=== PATIENT | female | born 1940 | race Caucasian/White ===

== ENCOUNTER → 2016-10-19 | Outpatient (CLI) | payer MEDICARE, BC ==
[2016-10-19 11:13] LABS: Basophils % (A) 1 %; CH 29.6; CHCM 32.4; Eosinophils # (A) 0.2 k/uL (0-0.7); Eosinophils % (A) 4 %; HDW 2.42; HGB 11.7 gm/dL (11.4-16.0); Luc # (Auto) 0.22; Luc % (Auto) 4; Lymphocytes # (A) 0.9 k/uL (1.0-4.8); Lymphocytes % (A) 15 %; MCH 28.9 pg (25.0-35.0); MCHC 31.6 g/dL (31.0-37.0); MCV 91.7 fL (80.0-100.0); Monocytes # (A) 0.4 k/uL (0-1.0); Monocytes % (A) 7 %; Neutrophils # (A) 4.1 k/uL (1.3-7.7); Neutrophils % (A) 70 %; RBC 4.03 m/uL (3.80-5.40); RDW 13.7 % (11.5-15.5); WBC 5.9 k/uL (3.8-10.6); WBC (Perox) 5.91
[2016-10-19 11:18] LABS: Calcium 9.8 mg/dL (8.4-10.2); Potassium 4.9 mmol/L (3.5-5.1); Total Bilirubin 0.3 mg/dL (0.2-1.3)
== END | disposition home or self-care (01) ==
LOC: LABWHC1 10:25
PROVIDERS: ATTEND Internal Medicine Gastroenterology
DX: K51.90 Ulcerative colitis, unspecified, without complications (principal)
CPT/HCPCS: 36415; 80053; 85025

== ENCOUNTER → 2016-10-31 | Outpatient (CLI) | payer MEDICARE, BC ==
--- NOTE | 2016-10-31 14:28 | MM ---
Reason for exam: history of breast cancer, mastectomy. Last mammogram was performed 1 year ago. History: Patient is postmenopausal, has history of breast cancer at age 65, and had previous chest radiation therapy at age 64. Family history of breast cancer in sister at age 60. Malignant MG stereo VAD BX addl LT of the left breast, November 06, 2014. Malignant MG stereo VAD BX LT of the left breast, November 06, 2014. Malignant left mammotome panel of the left breast, December 23, 2005. Radiation therapy of the left breast, 2005. Lumpectomy of the left breast, 2004. Cyst aspiration of the right breast. Excisional biopsy of the left breast. Physical Findings: Nurse did not find any significant physical abnormalities on exam. MG 3D Diag Mammo W/Cad RT CC and MLO view(s) were taken of the right breast. Prior study comparison: November 02, 2015, right breast MG 3d diag mammo w/cad RT. October 29, 2014, bilateral MG diagnostic mammo w CAD ANAND. The breast tissue is almost entirely fat. There is no discrete abnormality. No significant new findings when compared with previous films. These results were verbally communicated with the patient and result sheet given to the patient on 10/31/16. ASSESSMENT: Benign, BI-RAD 2 RECOMMENDATION: Follow-up diagnostic mammogram of the right breast in 1 year.
== END | disposition home or self-care (01) ==
LOC: RADMAMWWP 12:41
PROVIDERS: ATTEND Internal Medicine Hematology & Oncology
DX: Z85.3 Personal history of malignant neoplasm of breast (principal)
CPT/HCPCS: G0206; G0279

== ENCOUNTER → 2017-01-13 | Outpatient (CLI) | payer MEDICARE, BC ==
--- NOTE | 2017-01-13 15:22 | XR ---
Left foot HISTORY: Neuropathy, second toe numbness 3 views of the left foot No comparisons There is hallux valgus deformity with degenerative change at the first metatarsophalangeal joint. Bon e mineralization is reduced. Alignment otherwise near anatomic. Joint spaces are mildly reduced at th e interphalangeal joints. Enthesophyte present at the insertion of the Achilles tendon. IMPRESSION: Osteopenia, osteoarthritis and additional findings above.
== END | disposition home or self-care (01) ==
LOC: RADXRMAIN 11:20
PROVIDERS: ATTEND Internal Medicine
DX: S99.922A Unspecified injury of left foot, initial encounter (principal); M19.072 Primary osteoarthritis, left ankle and foot; M85.872 Other specified disorders of bone density and structure, left ankle and foot

== ENCOUNTER → 2017-05-02 | Outpatient (CLI) | payer MEDICARE, BC ==
--- NOTE | 2017-05-02 10:55 | BD ---
EXAMINATION TYPE: MG DEXA axial skeleton. DATE OF EXAM: 05/02/2017 CLINICAL HISTORY: Height: 62 inches Weight: 148 pounds FRAX RISK QUESTIONS: Alcohol (3 or more units per day): no Family History (Parent hip fracture): no Glucocorticoids (More than 3mos): no (Ex: prednisone, prednisolone, methylprednisolone, dexamethasone, and hydrocortisone). History of Fracture in Adulthood: wrist & ankle Secondary Osteoporosis: 1. Type 1 Diabetes: no, type II 2. Hyperthyroidism: no 3. Menopause before 45: hysterectomy age 40 4. Malnutrition: no 5. Chronic liver disease: no Rheumatoid Arthritis: yes Current Tobacco Use: no RISK FACTORS HISTORY OF: History of Wrist Fracture: yes When: about 20 years ago in [place] Family History of Osteoporosis: yes Active: yes Diet low in dairy products/other sources of calcium: a serving about every other day Postmenopausal woman: yes Take estrogen and/or progesterone medications: no Lost more than 2 inches in height since high school: unsure if height was at one time 64 or 63 inches Frequent falls: no Poor Health: no Hyperparathyroidism: no Adrenal Insufficiency: no MEDICATIONS: Prednisone or other steroids: no Thyroid Medications: no Osteoporosis Medications: not now Which medication: Fosamax How Long: a couple years Additional Medications: calcium& Vitamin D , blood pressure meds, Letrozole(Femara), cholesterol meds , Imuran Additional History: breast CA/radiation, diabetic-not insulin dependant; inactive cholitis EXAM MEASUREMENTS: Bone mineral densitometry was performed using the Individual Digital System. Bone mineral density as measured about the Lumbar spine is: ----- L1-L4(G/cm2): 1.046 T Score Values are as follows: ----- L2: -2.0 ----- L3: -0.7 ----- L4: -0.9 ----- L1-L4: -1.1 Bone mineral density has: Decreased -3.4% since study of: 09/22/2014 Bone mineral density about the R hip (g/cm2): 0.793 Bone mineral density about the L hip (g/cm2): 0.971 T Score values are as follows: -----R Neck: -1.8 -----L Neck: -0.5 -----R Total: -1.8 -----L Total: -1.1 Bone mineral density has: Decreased -2.7% since study of: 09/22/2014 IMPRESSION: Osteopenia (T Score between -2.5 and -1 as noted by T score values There is slightly increased risk of fracture and the patient may be considered for treatment. Re-Screen 2-5 years. NOTE: T-SCORE=SD OF THE YOUNG ADULT MEAN.
== END | disposition home or self-care (01) ==
LOC: RADBDWWP 09:58
PROVIDERS: ATTEND Internal Medicine Hematology & Oncology
DX: M85.80 Other specified disorders of bone density and structure, unspecified site (principal); C50.919 Malignant neoplasm of unspecified site of unspecified female breast
CPT/HCPCS: 77080

== ENCOUNTER → 2017-05-12 | Outpatient (CLI) | payer MEDICARE, BC ==
[2017-05-12 10:26] LABS: Basophils % (A) 1 %; CH 28.9; CHCM 31.7; Eosinophils # (A) 0.2 k/uL (0-0.7); Eosinophils % (A) 3 %; HCT 35.3 % (34.0-46.0); HDW 2.42; HGB 11.7 gm/dL (11.4-16.0); Luc # (Auto) 0.19; Luc % (Auto) 3; Lymphocytes # (A) 1.1 k/uL (1.0-4.8); Lymphocytes % (A) 18 %; MCH 30.3 pg (25.0-35.0); MCHC 33.1 g/dL (31.0-37.0); MCV 91.6 fL (80.0-100.0); Mean Platelet Volume 7.4; Monocytes # (A) 0.3 k/uL (0-1.0); Monocytes % (A) 5 %; Neutrophils # (A) 4.2 k/uL (1.3-7.7); Neutrophils % (A) 70 %; RBC 3.86 m/uL (3.80-5.40); RDW 12.8 % (11.5-15.5); WBC (Perox) 6.69
[2017-05-12 10:44] LABS: Calcium 9.7 mg/dL (8.4-10.2); Total Bilirubin 0.2 mg/dL (0.2-1.3); Total Protein 6.8 g/dL (6.3-8.2)
== END | disposition home or self-care (01) ==
LOC: LABWHC1 09:36
PROVIDERS: ATTEND Internal Medicine Gastroenterology
DX: K51.90 Ulcerative colitis, unspecified, without complications (principal)
CPT/HCPCS: 36415; 80053; 85025

== ENCOUNTER → 2017-10-27 | Outpatient (CLI) | payer MEDICARE, BC ==
[2017-10-27 10:01] LABS: Basophils % (A) 1 %; Eosinophils # (A) 0.2 k/uL (0-0.7); Eosinophils % (A) 4 %; HCT 36.9 % (34.0-46.0); HGB 12.3 gm/dL (11.4-16.0); Lymphocytes # (A) 0.9 k/uL (1.0-4.8); Lymphocytes % (A) 18 %; MCH 29.6 pg (25.0-35.0); MCHC 33.4 g/dL (31.0-37.0); MCV 88.7 fL (80.0-100.0); Mean Platelet Volume 7.7; Monocytes # (A) 0.2 k/uL (0-1.0); Monocytes % (A) 5 %; Neutrophils # (A) 3.5 k/uL (1.3-7.7); Neutrophils % (A) 69 %; Platelet Count 189 k/uL (150-450); RBC 4.16 m/uL (3.80-5.40); RDW 13.3 % (11.5-15.5); WBC 5.1 k/uL (3.8-10.6)
== END | disposition home or self-care (01) ==
LOC: LABWHC1 09:13
PROVIDERS: ATTEND Internal Medicine Gastroenterology
DX: K51.90 Ulcerative colitis, unspecified, without complications (principal)
CPT/HCPCS: 36415; 85025

== ENCOUNTER → 2017-11-01 | Outpatient (CLI) | payer MEDICARE, BC ==
--- NOTE | 2017-11-01 10:56 | MM ---
Reason for exam: additional evaluation requested from prior study. Last mammogram was performed 1 year ago. History: Patient is postmenopausal, has history of breast cancer at age 65, and had previous chest radiation therapy at age 64. Family history of breast cancer in sister at age 60. Malignant MG stereo VAD BX addl LT of the left breast, November 06, 2014. Malignant MG stereo VAD BX LT of the left breast, November 06, 2014. Mastectomy of the left breast, 2014. Malignant left mammotome panel of the left breast, December 23, 2005. Radiation therapy of the left breast, 2005. Lumpectomy of the left breast, 2004. Cyst aspiration of the right breast. Excisional biopsy of the left breast. Physical Findings: Nurse did not find any significant physical abnormalities on exam. MG 3D Diag Mammo W/Cad RT CC and MLO view(s) were taken of the right breast. Prior study comparison: October 31, 2016, right breast MG 3d diag mammo w/cad RT. November 02, 2015, right breast MG 3d diag mammo w/cad RT. There are scattered fibroglandular densities. No significant new findings when compared with previous films. These results were verbally communicated with the patient and result sheet given to the patient on 11/01/17. ASSESSMENT: Benign, BI-RAD 2 RECOMMENDATION: Routine screening mammogram of the right breast in 1 year.
== END | disposition home or self-care (01) ==
LOC: RADMAMWWP 10:02
PROVIDERS: ATTEND Internal Medicine Hematology & Oncology
DX: Z08 Encounter for follow-up examination after completed treatment for malignant neoplasm (principal); Z85.3 Personal history of malignant neoplasm of breast
CPT/HCPCS: 77065; G0279

== ENCOUNTER → 2018-04-30 | Outpatient (CLI) | payer MEDICARE, BC ==
[2018-04-30 10:15] LABS: Albumin 3.6 g/dL (3.5-5.0); Calcium 9.6 mg/dL (8.4-10.2); Total Bilirubin 0.3 mg/dL (0.2-1.3); Total Protein 6.1 g/dL (6.3-8.2)
[2018-04-30 10:18] LABS: Basophils % (A) 1 %; Eosinophils # (A) 0.3 k/uL (0-0.7); Eosinophils % (A) 7 %; HGB 10.4 gm/dL (11.4-16.0); Lymphocytes # (A) 0.9 k/uL (1.0-4.8); Lymphocytes % (A) 20 %; MCH 28.8 pg (25.0-35.0); MCHC 31.4 g/dL (31.0-37.0); MCV 91.8 fL (80.0-100.0); Mean Platelet Volume 7.8; Monocytes # (A) 0.3 k/uL (0-1.0); Monocytes % (A) 6 %; Neutrophils # (A) 2.9 k/uL (1.3-7.7); Neutrophils % (A) 64 %; Platelet Count 138 k/uL (150-450); RDW 14.1 % (11.5-15.5); WBC 4.6 k/uL (3.8-10.6)
== END | disposition home or self-care (01) ==
LOC: LABWHC1 08:22
PROVIDERS: ATTEND Internal Medicine Gastroenterology
DX: K51.90 Ulcerative colitis, unspecified, without complications (principal)
CPT/HCPCS: 36415; 80053; 85025

== ENCOUNTER → 2018-05-07 | Outpatient (CLI) | payer MEDICARE, BC ==
--- NOTE | 2018-05-08 06:45 | BD ---
EXAMINATION TYPE: Axial Bone Density DATE OF EXAM: 05/07/2018 COMPARISON: DEXA bone scan May 02, 2017. CLINICAL HISTORY: Breast cancer and osteopenia. Height: 5'2 Weight: 136 FRAX RISK QUESTIONS: History of Fracture in Adulthood: y Secondary Osteoporosis: 3. Menopause before 45: y RISK FACTORS HISTORY OF: History of Wrist Fracture: y When: 20 years ago MEDICATIONS: Osteoporosis Medications: Which medication: Other Prolia How Lon x Additional Medications: calcium, Vitamin D, cholesterol, Letrozole Additional History: breast cancer , radiation, type 2 diabetes EXAM MEASUREMENTS: Bone mineral densitometry was performed using the [employer]ainment System. Bone mineral density as measured about the Lumbar spine is: ----- L1-L4(G/cm2): 1.086 T Score Values are as follows: ----- L2: -1.6 ----- L3: -0.6 ----- L4: -0.2 ----- L1-L4: -0.8 Bone mineral density has: Increased 4.9% since study of: 05/02/2017 Bone mineral density about the R hip (g/cm2): 0.779 Bone mineral density about the L hip (g/cm2): 0.934 T Score values are as follows: -----R Neck: p-1.9 -----L Neck: -0.7 -----R Total: -1.9 -----L Total: -1.2 Bone mineral density has: Decreased -2.1% since study of: 05/02/2017 IMPRESSION: Osteopenia (T Score between -2.5 and -1) persists at 2 consecutive levels in the low back and overall in both hips. There remains slightly increased risk of fracture and the patient may be considered for treatment. Re-Screen 2-5 years. NOTE: T-SCORE=SD OF THE YOUNG ADULT MEAN.
== END ==
LOC: RADBDWWP 07:23
PROVIDERS: ATTEND Internal Medicine Hematology & Oncology
DX: M85.88 Other specified disorders of bone density and structure, other site (principal); M85.851 Other specified disorders of bone density and structure, right thigh; M85.852 Other specified disorders of bone density and structure, left thigh
CPT/HCPCS: 77080

== ENCOUNTER 2018-08-29 06:56 | Day surgery (SDC) | payer MEDICARE, BC ==
[2018-08-28 09:05] VITALS: BMI 23.1
[~2018-08-29 06:56] MED LIST: LACTATED RINGERS 1,000 ML IV SCH
[2018-08-29 07:32] VITALS: RESP 16; TEMP 97.8
[2018-08-29] MEDS ORDERED: LIDOCAINE 1% 20 ML VIAL (10MG/ML) FOR IV START INTRADERMA ONE (07:34)
[2018-08-29 07:37] LABS: Glucose,Whole Blood 86 mg/dL (75-99)
[2018-08-29] MEDS: hydrALAZINE HCL 20 MG/ML 1 ML VIAL IV ONE ×2 (07:55→08:20)
[2018-08-29] MEDS ORDERED: LABETALOL SYRINGE 5 MG/ML IV ONE (09:05)
[2018-08-29 09:38] VITALS: BP 175/79; PULSE 65
[2018-08-29 09:43] LABS: Glucose,Whole Blood 130 mg/dL (75-99)
== END 2018-08-29 10:03 | disposition home or self-care (01) ==
LOC: ORWHC2ENDO 06:56
PROVIDERS: ATTEND Internal Medicine Gastroenterology
DX: K51.90 Ulcerative colitis, unspecified, without complications (principal); Z53.09 Procedure and treatment not carried out because of other contraindication; I10 Essential (primary) hypertension

== ENCOUNTER 2018-08-30 09:12 | Day surgery (SDC) | payer MEDICARE, BC ==
[2018-08-30] MEDS ORDERED: LACTATED RINGERS 1,000 ML IV ONE ×2 (09:26)
[2018-08-30 09:27] VITALS: TEMP 97.8
[2018-08-30] MEDS ORDERED: LIDOCAINE 1% 20 ML VIAL (10MG/ML) FOR IV START INTRADERMA PRN (09:34)
[2018-08-30] MEDS ORDERED: LACTATED RINGERS 1,000 ML IV SCH (09:34)
[2018-08-30 09:42] LABS: Glucose,Whole Blood 140 mg/dL (75-99)
[2018-08-30] MEDS ORDERED: PROPOFOL 10 MG/ML 20 ML VIAL IV ONE (10:34)
--- NOTE | 2018-08-30 10:54 | P.PCN ---
Date of Procedure: 08/30/18 Procedure(s) Performed: BRIEF HISTORY: Patient is a 77-year-old pleasant white female, scheduled for an elective colonoscopy as a part of surveillance of long-standing history of ulcerative colitis diagnosed 15 years ago. She has been maintained on Imuran 100 mg daily since 1999 and remains in clinical remission. Imuran was decreased to 50 mg daily 2 years ago and still continues to do well. PROCEDURE PERFORMED: Colonoscopy with random biopsy. PREOPERATIVE DIAGNOSIS: Long-standing history of ulcerative colitis. IV sedation per Anesthesia. PROCEDURE: After informed consent was obtained, the patient, was brought into the endoscopy unit. IV sedation was administered by Anesthesia under continuous monitoring. Digital rectal examination was normal. Initially the Olympus CF- 160 flexible video colonoscope was then inserted in the rectum, gradually advanced into the cecum without any difficulty. Careful examination was performed as the scope was gradually being withdrawn. Ileocecal valve and the appendiceal orifice were visualized and appeared normal. Prep was excellent. Mucosa of the cecum, ascending colon, transverse colon, descending colon, sigmoid colon, and rectum appeared normal. Random biopsies were done at every 10 cm intervals from rectum to cecum to rule out dysplasia. Retroflexion was performed in the rectum and no lesions were seen. The patient tolerated the procedure well. IMPRESSION: Normal-appearing colon from rectum to cecum with no evidence of colitis or colorectal neoplasia.. RECOMMENDATIONS: Findings of this examination were discussed with the patient as well as a family. She was advised to follow with the biopsy results and if the biopsy does not show any evidence of dysplasia she can have a repeat colonoscopy in 2 years.
[2018-08-30 11:12] VITALS: BP 149/72; PULSE 60
[2018-08-30 11:20] VITALS: RESP 18
== END 2018-08-30 11:36 | disposition home or self-care (01) ==
LOC: ORWHC2ENDO 09:12
PROVIDERS: ATTEND Internal Medicine Gastroenterology
DX: K52.9 Noninfective gastroenteritis and colitis, unspecified (principal); K21.9 Gastro-esophageal reflux disease without esophagitis; I10 Essential (primary) hypertension; E78.5 Hyperlipidemia, unspecified; E11.9 Type 2 diabetes mellitus without complications; F41.9 Anxiety disorder, unspecified; Z79.84 Long term (current) use of oral hypoglycemic drugs; Z79.811 Long term (current) use of aromatase inhibitors; Z79.899 Other long term (current) drug therapy; Z88.6 Allergy status to analgesic agent; Z88.3 Allergy status to other anti-infective agents; Z88.8 Allergy status to other drugs, medicaments and biological substances
CPT/HCPCS: 88305; 45380; J2704

== ENCOUNTER → 2018-10-29 | Outpatient (CLI) | payer MEDICARE, BC ==
[2018-10-29 16:09] LABS: Albumin 4.2 g/dL (3.80-4.90); Albumin/Globulin Ratio 2.33 (1.60-3.17); Anion Gap 6.1 mmol/L (4.00-12.00); Calcium 9.8 mg/dL (8.7-10.3); Carbon Dioxide 26.9 mmol/L (21.6-31.8); Globulin 1.8 g/dL (1.6-3.3); Potassium 4.8 mmol/L (3.5-5.5); Total Bilirubin 0.5 mg/dL (0.2-1.2)
== END ==
LOC: LABWHC1 08:16
PROVIDERS: ATTEND Internal Medicine Interventional Cardiology
DX: R06.09 Other forms of dyspnea (principal)
CPT/HCPCS: 36415; 80053; 83880

== ENCOUNTER → 2018-11-23 | Outpatient (CLI) | payer MEDICARE, BC ==
[2018-11-23 16:49] LABS: Potassium 4.5 mmol/L (3.5-5.5)
== END ==
LOC: LABWHC1 08:10
PROVIDERS: ATTEND Nurse Practitioner Adult Health
DX: I10 Essential (primary) hypertension (principal)
CPT/HCPCS: 36415; 80048

== ENCOUNTER → 2019-02-06 | Outpatient (CLI) | payer MEDICARE, BC ==
--- NOTE | 2019-02-06 07:52 | MM ---
Reason for exam: additional evaluation requested from prior study. Last mammogram was performed 1 year and 3 months ago. History: Patient is postmenopausal, has history of other cancer at age 73, has history of breast cancer at age 65, and had previous chest radiation therapy at age 64. Family history of breast cancer in sister at age 60. Malignant MG stereo VAD BX addl LT of the left breast, November 06, 2014. Malignant MG stereo VAD BX LT of the left breast, November 06, 2014. Mastectomy of the left breast, 2014. Malignant left mammotome panel of the left breast, December 23, 2005. Radiation therapy of the left breast, 2005. Lumpectomy of the left breast, 2004. Cyst aspiration of the right breast. Excisional biopsy of the left breast. Took antineoplastic for 5 years beginning at age 73. Physical Findings: Nurse did not find any significant physical abnormalities on exam. MG 3D Diag Mammo W/Cad RT CC and MLO view(s) were taken of the right breast. Prior study comparison: November 01, 2017, right breast MG 3d diag mammo w/cad RT. October 31, 2016, right breast MG 3d diag mammo w/cad RT. There are scattered fibroglandular densities. Benign appearing calcifications in the right breast. No suspicious abnormality. These results were verbally communicated with the patient and result sheet given to the patient on 02/06/19. ASSESSMENT: Benign, BI-RAD 2 RECOMMENDATION: Follow-up diagnostic mammogram of the right breast in 1 year.
== END | disposition home or self-care (01) ==
LOC: RADMAMWWP 06:58
PROVIDERS: ATTEND Internal Medicine Hematology & Oncology
DX: Z85.3 Personal history of malignant neoplasm of breast (principal)
CPT/HCPCS: 77065; G0279; 77061

== ENCOUNTER → 2019-05-07 | Outpatient (CLI) | payer MEDICARE, BC ==
[2019-05-07 09:48] LABS: Basophils % (A) 0 %; Eosinophils # (A) 0.3 k/uL (0-0.7); Eosinophils % (A) 4 %; HCT 35.9 % (34.0-46.0); HGB 11.7 gm/dL (11.4-16.0); Lymphocytes # (A) 1.6 k/uL (1.0-4.8); Lymphocytes % (A) 23 %; MCH 29.1 pg (25.0-35.0); MCHC 32.6 g/dL (31.0-37.0); MCV 89.5 fL (80.0-100.0); Mean Platelet Volume 6.8; Monocytes # (A) 0.4 k/uL (0-1.0); Monocytes % (A) 5 %; Neutrophils # (A) 4.4 k/uL (1.3-7.7); Neutrophils % (A) 64 %; Platelet Count 183 k/uL (150-450); RBC 4.02 m/uL (3.80-5.40); RDW 12.7 % (11.5-15.5); WBC 6.9 k/uL (3.8-10.6)
== END ==
LOC: LABWHC1 08:44
PROVIDERS: ATTEND Internal Medicine Gastroenterology
DX: K51.90 Ulcerative colitis, unspecified, without complications (principal)
CPT/HCPCS: 36415; 85025

== ENCOUNTER → 2019-06-03 | Outpatient (CLI) | payer MEDICARE, BC ==
--- NOTE | 2019-06-03 11:42 | BD ---
EXAMINATION TYPE: Axial Bone Density DATE OF EXAM: 06/03/2019 COMPARISON: 05/07/2018 CLINICAL HISTORY: M [age] Height: 62 IN Weight: 153 LBS FRAX RISK QUESTIONS: History of Fracture in Adulthood: LT ANKLE FX AGE 58; LT WRIST FX AGE 58 Secondary Osteoporosis: Rheumatoid Arthritis: YES RISK FACTORS HISTORY OF: History of Wrist Fracture: LT WRIST When: AGE 58 Family History of Osteoporosis: YES MOTHER/FATHER/DAUGHTER Active: YES Diet low in dairy products/other sources of calcium: YES Postmenopausal woman: AGE 43 PARTIAL HYST MEDICATIONS: Osteoporosis Medications: YES Which medication: Prolia How Lon YEARS Additional Medications: CALCIUM, VIT D, OCUVITE, MELOXICAM, GLIPIZIDE, ENALAPRIL, OMEPRAZOLE, NORVASC , XANAX, JANUMET, COREG, NITROSTAT, Additional History: PT HAD BREAST CANCER SAME BREAST 2 TIMES. ONE ROUND OF RADIATION EXAM MEASUREMENTS: Bone mineral densitometry was performed using the [employer] System. Bone mineral density as measured about the Lumbar spine is: ----- L1-L4(G/cm2): 1.047 T Score Values are as follows: ----- L2: -1.8 ----- L3: -1.1 ----- L4: -0.1 ----- L1-L4: -1.1 Bone mineral density has: Decreased -2.2% since study of: 05/07/2018 Bone mineral density about the R hip (g/cm2): 0.810 Bone mineral density about the L hip (g/cm2): 0.963 T Score values are as follows: -----R Neck: -1.6 -----L Neck: -0.5 -----R Total: -2.0 -----L Total: -1.2 Bone mineral density has: Decreased -0.4% since study of: 05/07/2018 IMPRESSION: Osteopenia (T Score between -2.5 and -1). There is slightly increased risk of fracture and the patient may be considered for treatment. Re-Screen 2-5 years. NOTE: T-SCORE=SD OF THE YOUNG ADULT MEAN.
== END | disposition home or self-care (01) ==
LOC: RADBDWWP 08:52
PROVIDERS: ATTEND Internal Medicine Hematology & Oncology
DX: M85.80 Other specified disorders of bone density and structure, unspecified site (principal); C50.919 Malignant neoplasm of unspecified site of unspecified female breast; N95.1 Menopausal and female climacteric states
CPT/HCPCS: 77080

== ENCOUNTER → 2020-01-07 | Outpatient (CLI) | payer MEDICARE, BC ==
[2020-01-07 17:20] LABS: African American GFR (CKD) 54.5 (60.0-200.0); Albumin 4.2 g/dL (3.80-4.90); Albumin/Globulin Ratio 2.21 (1.60-3.17); Anion Gap 6.6 mmol/L (4.00-12.00); Calcium 9.4 mg/dL (8.7-10.3); Carbon Dioxide 25.4 mmol/L (21.6-31.8); Chol/HDL Ratio 2.53; Globulin 1.9 g/dL (1.6-3.3); LDL Cholesterol,Calculated 85.4 mg/dL (0.0-131.0); Potassium 4.7 mmol/L (3.5-5.5); Total Bilirubin 0.5 mg/dL (0.2-1.2); Total Protein 6.1 g/dL (6.2-8.2); VLDL Calculation 18.6 mg/dL (5.00-40.00)
[2020-01-07 18:54] LABS: Hemoglobin A1C 7.1 % (4.0-6.0)
== END | disposition home or self-care (01) ==
LOC: LABWHC1 08:16
PROVIDERS: ATTEND Internal Medicine Endocrinology, Diabetes & Metabolism
DX: E11.65 Type 2 diabetes mellitus with hyperglycemia (principal)
CPT/HCPCS: 36415; 80053; 80061; 82043; 82570; 83036; 84443

== ENCOUNTER → 2020-03-18 | Outpatient (CLI) | payer MEDICARE, BC ==
--- NOTE | 2020-03-19 08:49 | MM ---
Reason for exam: screening (asymptomatic). Last mammogram was performed 1 year and 1 month ago. History: Patient is postmenopausal, has history of other cancer at age 73, has history of breast cancer at age 65, and had previous chest radiation therapy at age 64. Family history of breast cancer in sister at age 60. Malignant MG stereo VAD BX addl LT of the left breast, November 06, 2014. Malignant MG stereo VAD BX LT of the left breast, November 06, 2014. Mastectomy of the left breast, 2014. Malignant left mammotome panel of the left breast, December 23, 2005. Radiation therapy of the left breast, 2005. Lumpectomy of the left breast, 2004. Cyst aspiration of the right breast. Excisional biopsy of the left breast. Took antineoplastic for 5 years beginning at age 73. Physical Findings: A clinical breast exam by your physician is recommended on an annual basis and results should be correlated with mammographic findings. MG 3D Scr Sammi Unilateral W/Cad CC and MLO view(s) were taken of the right breast. Prior study comparison: February 06, 2019, right breast MG 3d diag mammo w/cad RT. November 01, 2017, right breast MG 3d diag mammo w/cad RT. The breast tissue is heterogeneously dense. This may lower the sensitivity of mammography. Benign appearing calcifications in the right breast. No significant changes when compared with prior studies. ASSESSMENT: Benign, BI-RAD 2 RECOMMENDATION: Routine screening mammogram of the right breast in 1 year.
== END | disposition home or self-care (01) ==
LOC: RADMAMWWP 08:05
PROVIDERS: ATTEND Internal Medicine Hematology & Oncology
DX: Z12.31 Encounter for screening mammogram for malignant neoplasm of breast (principal); C50.919 Malignant neoplasm of unspecified site of unspecified female breast; E11.9 Type 2 diabetes mellitus without complications; M85.80 Other specified disorders of bone density and structure, unspecified site
CPT/HCPCS: 77067

== ENCOUNTER → 2020-04-21 | Outpatient (CLI) | payer MEDICARE, BC ==
[2020-04-21 17:35] LABS: Hemoglobin A1C 6.9 % (4.0-6.0)
== END | disposition home or self-care (01) ==
LOC: LABWHC1 08:09
PROVIDERS: ATTEND Internal Medicine Endocrinology, Diabetes & Metabolism
DX: E11.65 Type 2 diabetes mellitus with hyperglycemia (principal)
CPT/HCPCS: 36415; 83036; 84443

== ENCOUNTER 2020-11-18 08:05 | Day surgery (SDC) | payer MEDICARE, BC ==
[2020-11-13 09:58] VITALS: BMI 29.2
[~2020-11-18 08:05] MED LIST changes: +LIDOCAINE 1% (10MG/ML) FOR IV START INTRADERMA PRN
[2020-11-18 08:22] VITALS: TEMP 97.4
[2020-11-18 08:38] LABS: Glucose,Whole Blood 145 mg/dL (75-99)
[2020-11-18] MEDS ORDERED: PROPOFOL 10 MG/ML 20 ML VIAL IV ONE (08:59)
--- NOTE | 2020-11-18 09:10 | P.PCN ---
Date of Procedure: 11/18/20 Procedure(s) Performed: BRIEF HISTORY: Patient is a 80-year-old pleasant female scheduled for an elective colonoscopy as a part of long-standing history of ulcerative colitis and really diagnosed iron deficiency anemia. Last colonoscopy was 2 years ago. PROCEDURE PERFORMED: Colonoscopy with random biopsy. PREOPERATIVE DIAGNOSIS: And deficiency anemia/long-standing history of ulcerative colitis. IV sedation per Anesthesia. PROCEDURE: After informed consent was obtained, the patient, was brought into the endoscopy unit. IV sedation was administered by Anesthesia under continuous monitoring. Digital rectal examination was normal. Initially the Olympus CF-160 flexible video colonoscope was then inserted in the rectum, gradually advanced into the cecum without any difficulty. Careful examination was performed as the scope was gradually being withdrawn. Ileocecal valve and the appendiceal orifice were visualized and appeared normal. Prep was excellent. Mucosa of the cecum, ascending colon, transverse colon, descending colon, sigmoid colon, and rectum appeared normal. Random biopsies were done at every 10 cm into well. Retroflexion was performed in the rectum and no lesions were seen. The patient tolerated the procedure well. IMPRESSION: Normal-appearing colon from rectum to cecum no evidence of active colitis or colorectal neoplasia. RECOMMENDATIONS: Findings of this examination were discussed with the patient as well as a family. She was advised to follow with the biopsy results..
[2020-11-18 09:29] VITALS: BP 131/67; PULSE 60; RESP 16
== END 2020-11-18 09:45 | disposition home or self-care (01) ==
LOC: ORWHC2ENDO 08:05
PROVIDERS: ATTEND Internal Medicine Gastroenterology
DX: K51.90 Ulcerative colitis, unspecified, without complications (principal); D53.9 Nutritional anemia, unspecified; I10 Essential (primary) hypertension; E78.5 Hyperlipidemia, unspecified; E11.9 Type 2 diabetes mellitus without complications; M06.9 Rheumatoid arthritis, unspecified; Z79.84 Long term (current) use of oral hypoglycemic drugs; Z79.890 Hormone replacement therapy; Z79.899 Other long term (current) drug therapy; Z85.3 Personal history of malignant neoplasm of breast; Z88.8 Allergy status to other drugs, medicaments and biological substances
CPT/HCPCS: 88305; 45380; J2704

== ENCOUNTER → 2021-02-02 | Outpatient (CLI) | payer MEDICARE, BC ==
--- NOTE | 2021-02-02 16:03 | US ---
EXAMINATION TYPE: US venous doppler duplex LE LT DATE OF EXAM: 02/02/2021 3:43 PM COMPARISON: NONE CLINICAL HISTORY: R22.42 Swelling of left lower extremity. Patient stated has left ankle swelling sin ce hot weather approximately 3 weeks. SIDE PERFORMED: left TECHNIQUE: The lower extremity deep venous system is examined utilizing real time linear array sonog era with graded compression, doppler sonography and color-flow sonography. VESSELS IMAGED: Common Femoral Vein Deep Femoral Vein Greater Saphenous Vein * Femoral Vein Popliteal Vein Small Saphenous Vein * Proximal Calf Veins (* superficial vessels) Left Leg: Negative for DVT IMPRESSION: 1. No evidence of deep venous thrombosis in the left lower chum the veins.
== END | disposition home or self-care (01) ==
LOC: RADUSWWP 15:22
PROVIDERS: ATTEND Internal Medicine
DX: R22.42 Localized swelling, mass and lump, left lower limb (principal)

== ENCOUNTER → 2021-04-29 | Outpatient (CLI) | payer MEDICARE, BC ==
--- NOTE | 2021-05-03 11:27 | MM ---
Reason for exam: screening (asymptomatic). Last mammogram was performed 1 year and 1 month ago. History: Patient is postmenopausal, has history of other cancer at age 73, has history of breast cancer at age 65, and had previous chest radiation therapy at age 64. Family history of breast cancer in sister at age 60. Malignant MG stereo VAD BX addl LT of the left breast, November 06, 2014. Malignant MG stereo VAD BX LT of the left breast, November 06, 2014. Mastectomy of the left breast, 2014. Malignant left mammotome panel of the left breast, December 23, 2005. Radiation therapy of the left breast, 2005. Lumpectomy of the left breast, 2004. Cyst aspiration of the right breast. Excisional biopsy of the left breast. Took antineoplastic for 5 years beginning at age 73. Physical Findings: A clinical breast exam by your physician is recommended on an annual basis and results should be correlated with mammographic findings. MG 3D Scr Sammi Unilateral W/Cad CC, MLO, and XCCL view(s) were taken of the right breast. Prior study comparison: March 18, 2020, bilateral MG 3d scr sammi unilateral w/cad. February 06, 2019, right breast MG 3d diag mammo w/cad RT. November 01, 2017, right breast MG 3d diag mammo w/cad RT. There are scattered fibroglandular densities. Finding: There are typically benign vascular, round, linear calcifications in the right breast. There is no discrete abnormality. ASSESSMENT: Benign, BI-RAD 2 RECOMMENDATION: Routine screening mammogram of the right breast in 1 year.
== END | disposition home or self-care (01) ==
LOC: LABWHC1 09:22
PROVIDERS: ATTEND Internal Medicine Hematology & Oncology
DX: Z12.31 Encounter for screening mammogram for malignant neoplasm of breast (principal); Z78.0 Asymptomatic menopausal state; Z80.3 Family history of malignant neoplasm of breast; Z85.3 Personal history of malignant neoplasm of breast; Z90.12 Acquired absence of left breast and nipple; Z92.3 Personal history of irradiation
CPT/HCPCS: 77067

== ENCOUNTER → 2021-05-17 | Outpatient (CLI) | payer MEDICARE, BC ==
--- NOTE | 2021-05-17 10:24 | XR ---
EXAMINATION TYPE: XR Hip Complete LT DATE OF EXAM: 05/17/2021 COMPARISON: NONE HISTORY: Pain TECHNIQUE: 2 views submitted FINDINGS: There is no evidence of erosive change or acute fracture. Arthropathy of the hip. 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 Diffuse osteopenia. Mild arthropathy left SI joint. IMPRESSION: 1. Severe left hip arthropathy.
--- NOTE | 2021-05-17 10:27 | XR ---
EXAM TYPE: LUMBAR SPINE X RAY SERIES COMPARISON: NONE HISTORY: Pain TECHNIQUE: 4 views are submitted. FINDINGS: Alignment is anatomic. The pedicles are intact. The transverse processes are intact. There is diff use osteopenia with multilevel degenerative disc disease. There is a grade 1 anterolisthesis of L5 on S1. Multilevel facet arthropathy. There is a superior endplate compression fracture T12 of indetermi bella age. Multilevel facet arthropathy most marked at L4-5 and L5-S1. Vascular calcifications noted. IMPRESSION: 1. Severe facet arthropathy lower lumbar spine with grade 1 anterolisthesis L5 on S1. Suspect multile melinda foraminal encroachment. 2. Age-indeterminate superior endplate compression fracture T12.
--- NOTE | 2021-05-17 11:54 | US ---
EXAMINATION TYPE: US kidneys/renal and bladder DATE OF EXAM: 05/17/2021 COMPARISON: NONE CLINICAL HISTORY: S37.0 Acute kidney injury. EXAM MEASUREMENTS: Right Kidney: 8.6x4.9x4.5 cm Left Kidney: 8.4x5.7x4.7 cm Borderline small cortex bilaterally Right Kidney: wnl Left Kidney: wnl Bladder: wnl Bilateral Jets seen: Yes There is no evidence for hydronephrosis at this point in time. No nephrolithiasis is seen. No kiran s are identified. The urinary bladder is anechoic. Bilateral ureteral jets are seen. IMPRESSION: Bilateral renal cortical thinning is most likely due to chronic medical renal disease. No hydronephro sis.
== END | disposition home or self-care (01) ==
LOC: RADUSWWP 09:34
PROVIDERS: ATTEND Internal Medicine
DX: N17.9 Acute kidney failure, unspecified (principal); M16.12 Unilateral primary osteoarthritis, left hip; M43.16 Spondylolisthesis, lumbar region; M47.816 Spondylosis without myelopathy or radiculopathy, lumbar region
CPT/HCPCS: 72110; 73502; 76770

== ENCOUNTER → 2021-06-07 | Outpatient (CLI) | payer MEDICARE, BC ==
--- NOTE | 2021-06-07 14:37 | BD ---
EXAMINATION TYPE: Axial Bone Density DATE OF EXAM: 06/07/2021 COMPARISON: NONE CLINICAL HISTORY: Postmenopausal female Height: 5 FT 2 IN Weight: 158 FRAX RISK QUESTIONS: Alcohol (3 or more units per day): NO Family History (Parent hip fracture): NO Glucocorticoids (More than 3mos): YES (Ex: prednisone, prednisolone, methylprednisolone, dexamethasone, and hydrocortisone). History of Fracture in Adulthood: YES Secondary Osteoporosis: 1. Type 1 Diabetes: NO 2. Hyperthyroidism: NO 3. Menopause before 45: NO 4. Malnutrition: NO 5. Chronic liver disease: NO Rheumatoid Arthritis: YES Current Tobacco Use: NO RISK FACTORS HISTORY OF: History of Wrist Fracture: LEFT WRIST When: AGE 58 Surgery to Spine/Hip(right/left)/Wrist (right/left): NO Family History of Osteoporosis: YES Active: YES Diet low in dairy products/other sources of calcium: NO Postmenopausal woman: PART HYST AGE 43 NO REAL SYMPTOMS Take estrogen and/or progesterone medications: NO Lost more than 2 inches in height since high school: YES Poor Health: GOOD MEDICATIONS: Thyroid Medications: YES Which medication: SYNTHROID How Long: COUPLE OF YEARS Additional Medications: SYNTHROID, PROLIA, JANUMET, OMEPRAZOLE NITROSTAT, PRAVASTATIN, ENALAPRIL, DASHA GLITAZONE, XANAX, INVOKANA PROLIA SHOT FOR OSTEOPOROSIS X FOUR YEARS Additional History: BREAST CANCER X 2 LUMPECTOMY AND RADIATION EXAM MEASUREMENTS: Bone mineral densitometry was performed using the [employer] System. Bone mineral density as measured about the Lumbar spine is: ----- L1-L4(G/cm2): 1.097 T Score Values are as follows: ----- L2: -0.7 ----- L3: -0.8 ----- L4: -0.5 ----- L1-L4: -0.7 Bone mineral density has: INCREASED 3.0 % since study of: 2019 Bone mineral density about the R hip (g/cm2): 0.829 Bone mineral density about the L hip (g/cm2): 0.945 T Score values are as follows: -----R Neck: -1.5 -----L Neck: -0.7 -----R Total: -1.6 -----L Total: -0.8 Bone mineral density has: INCREASED 6.5 % since study of: 2019 IMPRESSION: Osteopenia (T Score between -2.5 and -1). There is slightly increased risk of fracture and the patient may be considered for treatment. Re-Screen 2-5 years. NOTE: T-SCORE=SD OF THE YOUNG ADULT MEAN.
== END | disposition home or self-care (01) ==
LOC: RADBDWWP 13:41
PROVIDERS: ATTEND Internal Medicine Hematology & Oncology
DX: M85.89 Other specified disorders of bone density and structure, multiple sites (principal); Z78.0 Asymptomatic menopausal state; Z79.84 Long term (current) use of oral hypoglycemic drugs
CPT/HCPCS: 77080

== ENCOUNTER → 2022-05-03 | Outpatient (CLI) | payer MEDICARE, BC ==
--- NOTE | 2022-05-04 19:58 | MM ---
Reason for Exam: Screening (asymptomatic). Last mammogram was performed 1 year(s) and 1 month(s) ago. Patient History: Menarche at age 11. First Full-Term at age 17. Left ovary removed at age 40. Right ovary removed at age 40. Hysterectomy at age 40. Postmenopausal. Breast cancer, left, age 65. Other cancer, age 73. Previous chest radiation therapy at age 64. 2004, Lumpectomy on the Left side. Cyst Aspiration on the Right side. Excisional Biopsy on the Left side. 2014, Mastectomy on the Left side. 11/06/2014, Malignant Core Biopsy on the left side. 11/06/2014, Malignant Core Biopsy on the left side. 12/23/2005, Malignant Core Biopsy on the left side. 2005, Radiation Therapy on the left side. Niece had breast cancer under age 50. Sister had breast cancer, age 60. Prior Study Comparison: 11/02/2015 Right Diagnostic Mammogram, [facility]. 10/31/2016 Right Diagnostic Mammogram, [facility]. 11/01/2017 Right Diagnostic Mammogram, [facility]. 02/06/2019 Right Diagnostic Mammogram, [facility]. 03/18/2020 Bilateral Screening Mammogram, [facility]. 04/29/2021 Bilateral Screening Mammogram, [facility]. Tissue Density: Right: The breast tissue is heterogeneously dense. This may lower the sensitivity of mammography. Findings: Analyzed By CAD. Pattern appears stable. Benign vascular calcification is present bilaterally. No suspicious groups of microcalcifications, spiculated or lobular masses, architectural distortion or other secondary signs of malignancy are mammographically apparent. Overall Assessment: Benign, BI-RAD 2 Management: Screening Mammogram of both breasts in 1 year. A negative mammogram report should not preclude additional follow up of suspicious palpable abnormalities. Patient should continue monthly self breast exam. A clinical breast exam by your physician is recommended on an annual basis and results should be correlated with mammographic findings. Electronically signed and approved by: Edward Barr D.O. Radiologis
== END | disposition home or self-care (01) ==
LOC: RADMAMWWP 10:56
PROVIDERS: ATTEND Internal Medicine Hematology & Oncology
DX: Z12.31 Encounter for screening mammogram for malignant neoplasm of breast (principal); Z78.0 Asymptomatic menopausal state; Z80.3 Family history of malignant neoplasm of breast
CPT/HCPCS: 77067

== ENCOUNTER 2022-06-06 11:20 | Emergency (ER) | payer MEDICARE, BC ==
[2022-06-06 11:25] VITALS: TEMP 97.1
[2022-06-06] MEDS ORDERED: MORPHINE SULFATE 2 MG/ML SYRINGE IVP ONE (11:47)
--- NOTE | 2022-06-06 11:52 | ED ---
General Adult HPI - General Source: patient, RN notes reviewed, old records reviewed Mode of arrival: ambulatory Limitations: no limitations - History of Present Illness -: week(s) (1) Location: back Severity scale (1-10): 7 Quality: constant Consistency: constant Improves with: none Worsens with: other (deep breaths) Associated Symptoms: denies other symptoms Treatments Prior to Arrival: other (sent by PCP for CT r/o PE) <Gopi Morgan - Last Filed: 06/06/22 15:41> <Chandrakant Panchal - Last Filed: 06/06/22 18:01> - General Chief complaint: Shortness of Breath Stated complaint: poss blood clot lungs Time Seen by Provider: 06/06/22 11:40 - History of Present Illness Initial comments: 81-year-old female presents to the emergency room, alert and oriented 4, with complaints of back pain that is worse with deep breaths for one week. Patient states started on the left side and has gradually moved to the right side or her back. She was sent here by her primary care doctor today who recommended she come for CT to rule out pulmonary embolism. Patient has no history of pulmonary embolisms or DVTs. She does have a history of breast cancer. No fevers, cough, chest pain, or nausea vomiting, diarrhea. (Gopi Morgan) - Related Data Home Medications Medication Instructions Recorded Confirmed ALPRAZolam [Xanax] 0.25 mg PO BID PRN 11/11/14 06/06/22 Omeprazole [PriLOSEC] 20 mg PO DAILY 11/11/14 06/06/22 Nitroglycerin Sl Tabs [Nitrostat] 0.4 mg SUBLINGUAL Q5M PRN 10/06/15 06/06/22 Pravastatin Sodium [Pravachol] 40 mg PO DAILY 08/30/18 06/06/22 Albuterol Inhaler [Ventolin Hfa 2 puff INHALATION RT-Q6H PRN 11/13/20 06/06/22 Inhaler] Ascorbic Acid [Vitamin C] 500 mg PO DAILY 11/13/20 06/06/22 Ferrous Sulfate [Feosol] 325 mg PO DAILY 11/13/20 06/06/22 Levothyroxine Sodium [Synthroid] 50 mcg PO DAILY 11/13/20 06/06/22 Pioglitazone [Actos] 30 mg PO W/LUNCH 11/13/20 06/06/22 Zinc 50 mg PO DAILY 11/13/20 06/06/22 carvediloL [Coreg] 12.5 mg PO BID 11/13/20 06/06/22 glipiZIDE [Glucotrol] 2.5 mg PO BID-W/MEALS 11/13/20 06/06/22 Calcium Carbonate/Vitamin D3 1 tab PO DAILY 06/06/22 06/06/22 [Calcium 600 mg-Vit D3 5 mcg (200 unit)] Cranberry + Vit C 1 tab PO DAILY 06/06/22 06/06/22 Enalapril Maleate 20 mg PO DAILY 06/06/22 06/06/22 Furosemide [Lasix] 20 mg PO Q48H 06/06/22 06/06/22 Meclizine HCl 12.5 mg PO TID PRN 06/06/22 06/06/22 Turmeric Root Extract [Turmeric] 500 mg PO DAILY 06/06/22 06/06/22 sitaGLIPtin PHOS/metFORMIN HCL 1 tab PO BID 06/06/22 06/06/22 [Janumet 50-500 mg Tablet] Allergies Allergy/AdvReac Type Severity Reaction Status Date / Time iron Allergy Unknown colitis Verified 06/06/22 13:53 flare meloxicam AdvReac Unknown colitis Verified 06/06/22 13:53 flare simvastatin AdvReac Unknown colitis Verified 06/06/22 13:53 flare atorvastatin calcium AdvReac makes Verified 06/06/22 13:53 [From Lipitor] colitis flare rofecoxib [From Vioxx] AdvReac makes Verified 06/06/22 13:53 colitis flare terbinafine HCl AdvReac turbinafine Verified 06/06/22 13:53 [From Lamisil] hcl-makes colitis flare Blood Transfusion AdvReac Unknown chills, Uncoded 11/18/20 08:15 colitis flare chromagen AdvReac Unknown makes Uncoded 11/18/20 08:15 colitis flare Vitamin B 12 AdvReac Unknown makes Uncoded 11/18/20 08:15 colitis flare Review of Systems ROS Other: All systems not noted in ROS Statement are negative. <Gopi Morgan - Last Filed: 06/06/22 15:41> ROS Other: All systems not noted in ROS Statement are negative. <AbdulkadirChandrakant - Last Filed: 06/06/22 18:01> ROS Statement: Those systems with pertinent positive or pertinent negative responses have been documented in the HPI. Past Medical History Past Medical History: Asthma, Cancer, Chest Pain / Angina, Diabetes Mellitus, Eye Disorder, GERD/Reflux, Hyperlipidemia, Hypertension, Osteoarthritis (OA) Additional Past Medical History / Comment(s): HX ULCERATIVE COLITIS, breast cancer (surgery & radiation tx 1998), reoccurence 2014 with surgery, DIABETIC RETINOPATHY-(RECIEVING INJECTIONS).,STATES SHE TAKES CETIRIZINE FOR RASH., STATES LOW IRON AND HGB. History of Any Multi-Drug Resistant Organisms: None Reported Past Surgical History: Breast Surgery, Heart Catheterization, Hysterectomy, Tonsillectomy Additional Past Surgical History / Comment(s): biopsy left breast lumpectomy 1998, left mastectomy November 2014, ANAND cataract Past Anesthesia/Blood Transfusion Reactions: No Reported Reaction Additional Past Anesthesia/Blood Transfusion Reaction / Comment(s): STATES HX OF ELEVATED BLOODPRESSURE AND COLONOSCOPY CANCELLED. Past Psychological History: Anxiety Smoking Status: Never smoker Past Alcohol Use History: None Reported Past Drug Use History: None Reported - Past Family History Sister(s) Family Medical History: Cancer Additional Family Medical History / Comment(s): COLON & BREAST CANCER Brother(s) Additional Family Medical History / Comment(s): CROHNS <Gopi Morgan - Last Filed: 06/06/22 15:41> General Exam Limitations: no limitations General appearance: alert, in no apparent distress Head exam: Present: atraumatic Eye exam: Present: normal appearance. Absent: scleral icterus, conjunctival injection ENT exam: Present: mucous membranes moist Neck exam: Present: normal inspection. Absent: tenderness, meningismus Respiratory exam: Present: normal lung sounds bilaterally. Absent: respiratory distress, wheezes, rales, rhonchi, stridor, chest wall tenderness, accessory muscle use Cardiovascular Exam: Present: regular rate GI/Abdominal exam: Present: soft. Absent: distended, tenderness, rigid Extremities exam: Present: full ROM, normal capillary refill. Absent: tenderness, pedal edema, calf tenderness Back exam: Present: normal inspection, full ROM, tenderness (right thoracic). Absent: muscle spasm, paraspinal tenderness, vertebral tenderness, rash noted Neurological exam: Present: alert, altered, oriented X3, normal gait Psychiatric exam: Present: normal affect, normal mood Skin exam: Present: warm, dry, normal color. Absent: cyanosis, diaphoretic, petechiae, pallor <Gopi Morgan - Last Filed: 06/06/22 15:41> Course - Reevaluation(s) Time: 13:36 <Gopi Morgan - Last Filed: 06/06/22 15:41> Vital Signs 06/06/22 06/06/22 06/06/22 11:21 15:03 17:55 Temperature 97.1 F L Pulse Rate 60 58 L 60 Respiratory 16 18 18 Rate Blood Pressure 199/80 197/89 176/80 O2 Sat by Pulse 99 98 98 Oximetry - Reevaluation(s) Reevaluation #1: 06/06/22 13:[address] Palmer regarding patient. GFR 32, d-dimer age-appropriate at 0.76. He states patient presented to him with back pain and pain with inspiration, he is requesting VQ scan. (Gopi Morgan) Medical Decision Making - Lab Data Result diagrams: 06/06/22 11:55 06/06/22 11:55 <Gopi Morgan - Last Filed: 06/06/22 15:41> - Lab Data Result diagrams: 06/06/22 11:55 06/06/22 11:55 - Radiology Data Radiology results: report reviewed (Perfusion scan is low probability) <Chandrakant Panchal - Last Filed: 06/06/22 18:01> - Medical Decision Making Oxygen saturation 99% on room air. Heart rate 60. Lung sounds are clear. Patient in no respiratory distress. No cough. She has had a history of breast cancer. No active cancer at this time. No history of PE or DVT. Denies any calf pain. Wells score for PE low risk. No evidence of leukocytosis. CRP negative. D-dimer age-appropriate at 0.76. Creatinine is 1.49. I did speak with Dr. Palmer regarding results and he recommended VQ scan. Case was signed out to Dr. Panchal for continuation of care. (Gopi Morgan) Patient reevaluated and feeling much better. Patient does have mild discomfort right lower posterior rib area. Patient states symptoms significantly improved with morphine. Patient states discomfort was causing her to feel somewhat short of breath however no longer feels that way. Lungs are clear to auscultation. Patient is requesting discharge home. Patient updated on results and need for close follow-up. (Chandrakant Panchal) - Lab Data Lab Results 06/06/22 06/06/22 06/06/22 Range/Units 11:55 11:55 11:55 WBC 9.5 (3.8-10.6) k/uL RBC 4.00 (3.80-5.40) m/uL Hgb 12.0 (11.4-16.0) gm/dL Hct 36.7 (34.0-46.0) % MCV 92.0 (80.0-100.0) fL MCH 30.0 (25.0-35.0) pg MCHC 32.6 (31.0-37.0) g/dL RDW 12.9 (11.5-15.5) % Plt Count 178 (150-450) k/uL MPV 9.0 Neutrophils % 63 % Lymphocytes % 26 % Monocytes % 5 % Eosinophils % 3 % Basophils % 0 % Neutrophils # 6.0 (1.3-7.7) k/uL Lymphocytes # 2.5 (1.0-4.8) k/uL Monocytes # 0.5 (0-1.0) k/uL Eosinophils # 0.2 (0-0.7) k/uL Basophils # 0.0 (0-0.2) k/uL D-Dimer (<0.60) mg/L FEU Sodium 138 (137-145) mmol/L Potassium 4.5 (3.5-5.1) mmol/L Chloride 105 (98-107) mmol/L Carbon Dioxide 26 (22-30) mmol/L Anion Gap 7 mmol/L BUN 55 H (7-17) mg/dL Creatinine 1.49 H (0.52-1.04) mg/dL Est GFR (CKD-EPI)AfAm 37 (>60 ml/min/1.73 sqM) Est GFR (CKD-EPI)NonAf 32 (>60 ml/min/1.73 sqM) Glucose 184 H (74-99) mg/dL Plasma Lactic Acid Saw 1.0 (0.7-2.0) mmol/L Calcium 9.9 (8.4-10.2) mg/dL Troponin I (0.000-0.034) ng/mL C-Reactive Protein <0.5 (<1.0) mg/dL 06/06/22 06/06/22 Range/Units 11:55 12:45 WBC (3.8-10.6) k/uL RBC (3.80-5.40) m/uL Hgb (11.4-16.0) gm/dL Hct (34.0-46.0) % MCV (80.0-100.0) fL MCH (25.0-35.0) pg MCHC (31.0-37.0) g/dL RDW (11.5-15.5) % Plt Count (150-450) k/uL MPV Neutrophils % % Lymphocytes % % Monocytes % % Eosinophils % % Basophils % % Neutrophils # (1.3-7.7) k/uL Lymphocytes # (1.0-4.8) k/uL Monocytes # (0-1.0) k/uL Eosinophils # (0-0.7) k/uL Basophils # (0-0.2) k/uL D-Dimer 0.76 H (<0.60) mg/L FEU Sodium (137-145) mmol/L Potassium (3.5-5.1) mmol/L Chloride (98-107) mmol/L Carbon Dioxide (22-30) mmol/L Anion Gap mmol/L BUN (7-17) mg/dL Creatinine (0.52-1.04) mg/dL Est GFR (CKD-EPI)AfAm (>60 ml/min/1.73 sqM) Est GFR (CKD-EPI)NonAf (>60 ml/min/1.73 sqM) Glucose (74-99) mg/dL Plasma Lactic Acid Saw (0.7-2.0) mmol/L Calcium (8.4-10.2) mg/dL Troponin I <0.012 (0.000-0.034) ng/mL C-Reactive Protein (<1.0) mg/dL Disposition <Gopi Morgan - Last Filed: 06/06/22 15:41> Is patient prescribed a controlled substance at d/c from ED?: No Time of Disposition: 18:00 <Chandrakant Panchal - Last Filed: 06/06/22 18:01> Clinical Impression: Back pain Disposition: HOME SELF-CARE Condition: Stable Instructions (If sedation given, give patient instructions): Back Pain (ED) Additional Instructions: Please follow-up with your primary care physician in the next day or 2 for recheck. Return for weakness, difficulty breathing, worsening symptoms or any other concerns. Referrals: Jama Palmer MD [Primary Care Provider] - 1-2 days
[2022-06-06 12:06] LABS: Basophils % (A) 0 %; Eosinophils # (A) 0.2 k/uL (0-0.7); Eosinophils % (A) 3 %; HCT 36.7 % (34.0-46.0); Lymphocytes # (A) 2.5 k/uL (1.0-4.8); Lymphocytes % (A) 26 %; MCHC 32.6 g/dL (31.0-37.0); Monocytes # (A) 0.5 k/uL (0-1.0); Monocytes % (A) 5 %; Neutrophils % (A) 63 %; Platelet Count 178 k/uL (150-450); RDW 12.9 % (11.5-15.5); WBC 9.5 k/uL (3.8-10.6)
[2022-06-06 12:35] LABS: African American GFR (CKD) 37 (>60 ml/min/1.73 sqM); Anion Gap 7 mmol/L; Blood Urea Nitrogen 55 mg/dL (7-17); C Reactive Protein <0.5 mg/dL (<1.0); Calcium 9.9 mg/dL (8.4-10.2); Carbon Dioxide 26 mmol/L (22-30); Chloride 105 mmol/L (98-107); Glucose 184 mg/dL (74-99); Non-African American GFR(CKD) 32 (>60 ml/min/1.73 sqM); Potassium 4.5 mmol/L (3.5-5.1); Sodium 138 mmol/L (137-145)
[2022-06-06 15:04] VITALS: RESP 18
[2022-06-06] MEDS ORDERED: MORPHINE SULFATE 4 MG/ML SYRINGE IVP STA (15:05)
[2022-06-06] MEDS ORDERED: hydrALAZINE HCL 20 MG/ML 1 ML VIAL IVP STA (15:06)
--- NOTE | 2022-06-06 17:14 | NM ---
EXAMINATION TYPE: NM pul vent and perfuse DATE OF EXAM: 06/06/2022 COMPARISON: NONE HISTORY: TECHNIQUE: Utilizing inhalation of 68.4 mCi Tc 99m DTPA aerosol and intravenous injection of 5.1 mCi of Tc 99m MAA, ventilation and perfusion images are acquired post injection in multiple projections. FINDINGS: There is a small subsegmental matching defect in the posterior segment of the left upper lobe. There are matching defects at the right lung apex. There is no ventilation/perfusion mismatch. IMPRESSION: Matching subsegmental defects. There is a low probability of pulmonary embolism.
[2022-06-06 17:55] VITALS: BP 176/80; PULSE 60
[2022-06-06] MEDS ORDERED: ACET/COD 300 MG/30 MG STARTER PACK 6 TAB BTL PO STA (18:00)
== END 2022-06-06 18:19 | disposition home or self-care (01) ==
LOC: EC 11:20
DX: M54.9 Dorsalgia, unspecified (principal); J45.909 Unspecified asthma, uncomplicated; E11.9 Type 2 diabetes mellitus without complications; K21.9 Gastro-esophageal reflux disease without esophagitis; E78.5 Hyperlipidemia, unspecified; I10 Essential (primary) hypertension; M19.90 Unspecified osteoarthritis, unspecified site; F41.9 Anxiety disorder, unspecified; Z91.048 Other nonmedicinal substance allergy status; Z88.8 Allergy status to other drugs, medicaments and biological substances; Z91.018 Allergy to other foods; Z79.51 Long term (current) use of inhaled steroids; Z79.899 Other long term (current) drug therapy
CPT/HCPCS: 36415; 93005; 85379; 80048; 83605; 84484; 85025; 86140; 78582; 99285; 96374; 96375; 96376 ×2; A9540; A9567; J2270 ×2; J0360; 87070; 87075; 87205

== ENCOUNTER → 2023-05-04 | Outpatient (CLI) | payer MEDICARE, BC ==
--- NOTE | 2023-05-05 09:52 | MM ---
Reason for Exam: Screening (asymptomatic). Last screening mammogram was performed 12 month(s) ago. Patient History: Menarche at age 11. First Full-Term at age 17. Left ovary removed at age 40. Right ovary removed at age 40. Hysterectomy at age 40. Postmenopausal. Breast cancer, left, age 65. Other cancer, age 73. Previous chest radiation therapy at age 64. 2004, Lumpectomy on the Left side. Cyst Aspiration on the Right side. Excisional Biopsy on the Left side. 2014, Mastectomy on the Left side. 11/06/2014, Malignant Core Biopsy on the left side. 11/06/2014, Malignant Core Biopsy on the left side. 12/23/2005, Malignant Core Biopsy on the left side. 2005, Radiation Therapy on the left side. Niece had breast cancer under age 50. Sister had breast cancer, age 60. Prior Study Comparison: 03/18/2020 Bilateral Screening Mammogram, [facility]. 04/29/2021 Bilateral Screening Mammogram, [facility]. 05/03/2022 Right MG 3D scr kita unilateral w/cad., [facility]. Tissue Density: Right: The breast tissue is heterogeneously dense. This may lower the sensitivity of mammography. Findings: Analyzed By CAD. There is no suspicious group of microcalcifications or new suspicious mass within the right breast. Overall Assessment: Benign, BI-RAD 2 Management: Screening Mammogram of the right breast in 1 year. . Patient should continue monthly self-breast exams. A clinical breast exam by your physician is recommended on an annual basis. This exam should not preclude additional follow-up of suspicious palpable abnormalities. Note on Mimi scores and lifetime risk: 1. A Mimi score greater than 3% is considered moderate risk. If this is the case, consider specialist referral to assess eligibility for a risk reducing agent. 2. If overall lifetime risk for the development of breast cancer is 20% or higher, the patient may qualify for future screening with alternating mammogram and breast MRI. Electronically signed and approved by: Mir Jones M.D. Radiologis
== END | disposition home or self-care (01) ==
LOC: RADMAMWWP 10:57
PROVIDERS: ATTEND Internal Medicine Hematology & Oncology
DX: Z12.31 Encounter for screening mammogram for malignant neoplasm of breast (principal); Z78.0 Asymptomatic menopausal state; Z80.3 Family history of malignant neoplasm of breast; Z85.3 Personal history of malignant neoplasm of breast
CPT/HCPCS: 77067

== ENCOUNTER → 2023-09-28 | Outpatient (CLI) | payer MEDICARE, BC ==
--- NOTE | 2023-09-28 12:25 | MR ---
EXAMINATION TYPE: MR angio head wo con DATE OF EXAM: 09/28/2023 9:36 AM CLINICAL INDICATION:Female, 83 years old with history of R41.0 DISORIENTATION, UNSPECIFIED; PHH, Conf usion, numbness, dizziness, forgetfulness. COMPARISON: I same day Technical: 3-D [id number] Axial with MIP reconstruction created on a separate workstation. IV Contrast: None Findings: Vertebral arteries: The vertebral arteries are patent. Vertebral arteries are: Codominant. Basilar artery: The basilar artery is intact. The basilar artery bifurcation is normal. Internal Carotid arteries: The cervical, petrous, cavernous and supraclinoid segments are normal. MARYJO: Patent with no evidence of aneurysm. ACOM: Present without evidence of aneurysm. MCA: Patent with no evidence of aneurysm. TWISTING FRAME CHANGER: Patent with no evidence of aneurysm. PCOM: Hypoplastic bilaterally. IMPRESSION: No evidence of aneurysm or significant stenosis.
--- NOTE | 2023-09-28 12:35 | MR ---
EXAMINATION TYPE: MR brain wo/w con DATE OF EXAM: 09/28/2023 10:16 AM CLINICAL INDICATION:Female, 83 years old with history of R41.0 DISORIENTATION, UNSPECIFIED; PHH, Conf usion, numbness, dizziness, forgetfulness. COMPARISON: Same day MRA TECHNIQUE: Multi planar, multi sequence imaging was performed through the brain including: T1, T2, In version recovery, susceptibility weighted imaging and gradient echo imaging and Diffusion weighted im aging. The patient was then given intravenous contrast and multi planar, T1 fat-saturation images wer e obtained. IV Contrast: 6.5 cc Gadavist FINDINGS: There is a cavum septum pellucidum. Mild cerebral atrophy with proportional dilation of kelly tricular system. Diffusion-weighted imaging shows no evidence of restricted diffusion to suggest acu te/subacute infarct. Intracranial arterial flow voids are maintained. Midline structures show no abno rmality. Scattered foci of high T2 signal intensity are seen within the periventricular white matter. The susceptibility weighted images do not reveal any evidence for micro-hemorrhage. After administra tion of gadolinium, no abnormal enhancement is seen. The bone marrow signal is within normal limits. Paranasal sinuses and mastoid air cells: No significant paranasal sinus disease. Visualized orbits: Orbital contents are intact. IMPRESSION: 1. No evidence of intracranial mass, acute/subacute infarct, or abnormal enhancement. 2. Nonspecific white matter changes, likely related to small vessel ischemic disease.
== END | disposition home or self-care (01) ==
LOC: RADMRIMAIN 08:55
PROVIDERS: ATTEND Internal Medicine
DX: R41.0 Disorientation, unspecified (principal); R90.82 White matter disease, unspecified; R42 Dizziness and giddiness; R20.0 Anesthesia of skin
CPT/HCPCS: 70544; 70553; A9585

== ENCOUNTER 2024-02-21 07:41 | Day surgery (SDC) | payer MEDICARE, BC ==
[2024-02-20 08:43] VITALS: BMI 25.6
[2024-02-21] MEDS: IV FLUID CONTINUATION 1,000 ML IV ONE (08:02)
[2024-02-21 08:04] VITALS: RESP 16; TEMP 97
[2024-02-21 08:17] LABS: Glucose,Whole Blood 192 mg/dL (70-110)
[2024-02-21] MEDS: LACTATED RINGERS 1,000 ML IV SCH (08:17)
[2024-02-21] MEDS ORDERED: PROPOFOL 10 MG/ML 20 ML VIAL IV ONE (08:52)
--- NOTE | 2024-02-21 09:04 | P.PCN ---
Date of Procedure: 02/21/24 Procedure(s) Performed: BRIEF HISTORY: Patient is a 83-year-old pleasant white female scheduled for an elective colonoscopy as a part of screening for colon cancer because of longstanding history of ulcerative colitis. PROCEDURE PERFORMED: Colonoscopy with biopsy PREOPERATIVE DIAGNOSIS: Longstanding history of ulcerative colitis/screening for colorectal neoplasia. IV sedation per Anesthesia. PROCEDURE: After informed consent was obtained, the patient, was brought into the endoscopy unit. IV sedation was administered by Anesthesia under continuous monitoring. Digital rectal examination was normal. Initially the Olympus CF-160 flexible video colonoscope was then inserted in the rectum, gradually advanced into the cecum without any difficulty. Careful examination was performed as the scope was gradually being withdrawn. Ileocecal valve and the appendiceal orifice were visualized and appeared normal. Prep was excellent. Mucosa of the cecum, ascending colon, transverse colon, descending colon, sigmoid colon, and rectum appeared normal. Biopsies were done from the cecum to rectum at every 10 cm intervals. Retroflexion was performed in the rectum and no lesions were seen. The patient tolerated the procedure well. IMPRESSION: Normal-appearing colon from rectum to cecum with no evidence of active colitis or colorectal neoplasia. RECOMMENDATIONS: Findings of this examination were discussed with the patient as well as her family. She was advised to follow-up the biopsy results. Did not recommend any further screening colonoscopy because of her advanced age.
[2024-02-21 09:29] LABS: Glucose,Whole Blood 167 mg/dL (70-110)
[2024-02-21 10:06] VITALS: BP 146/68; PULSE 52
== END 2024-02-21 10:07 | disposition home or self-care (01) ==
LOC: ORWHC2ENDO 07:41
PROVIDERS: ATTEND Internal Medicine Gastroenterology
DX: K51.90 Ulcerative colitis, unspecified, without complications (principal); Z80.0 Family history of malignant neoplasm of digestive organs; Z83.79 Family history of other diseases of the digestive system; K21.9 Gastro-esophageal reflux disease without esophagitis; E03.9 Hypothyroidism, unspecified; E11.69 Type 2 diabetes mellitus with other specified complication; E78.5 Hyperlipidemia, unspecified; I12.9 Hypertensive chronic kidney disease with stage 1 through stage 4 chronic kidney disease, or unspecified chronic kidney disease; E11.22 Type 2 diabetes mellitus with diabetic chronic kidney disease; N18.9 Chronic kidney disease, unspecified; J45.909 Unspecified asthma, uncomplicated; Z88.6 Allergy status to analgesic agent; Z88.8 Allergy status to other drugs, medicaments and biological substances; Z79.84 Long term (current) use of oral hypoglycemic drugs; Z79.899 Other long term (current) drug therapy
CPT/HCPCS: 88305; 45380; J2704

== ENCOUNTER → 2024-05-06 | Outpatient (CLI) | payer MEDICARE, BC ==
--- NOTE | 2024-05-08 09:50 | MM ---
Reason for Exam: Screening (asymptomatic). Last screening mammogram was performed 12 month(s) ago. Patient History: Menarche at age 11. First Full-Term at age 17. Left ovary removed at age 40. Right ovary removed at age 40. Hysterectomy at age 40. Postmenopausal. Breast cancer, left, age 65. Breast cancer, left, age 73. Previous chest radiation therapy at age 64. 2004, Lumpectomy on the Left side. Cyst Aspiration on the Right side. Excisional Biopsy on the Left side. 2014, Mastectomy on the Left side. 11/06/2014, Malignant Core Biopsy on the left side. 11/06/2014, Malignant Core Biopsy on the left side. 12/23/2005, Malignant Core Biopsy on the left side. 2005, Radiation Therapy on the left side. Niece had breast cancer under age 50. Sister had breast cancer, age 60. Prior Study Comparison: 04/29/2021 Bilateral Screening Mammogram, [facility]. 05/03/2022 Right MG 3D scr kita unilateral w/cad., [facility]. 05/04/2023 Right MG 3D scr kita unilateral w/cad., [facility]. Tissue Density: Right: There are scattered areas of fibroglandular density. Findings: Analyzed By CAD. There is no suspicious group of microcalcifications or new suspicious mass in either breast. Overall Assessment: Benign, BI-RAD 2 Management: Screening Mammogram of both breasts in 1 year. . Patient should continue monthly self-breast exams. A clinical breast exam by your physician is recommended on an annual basis. This exam should not preclude additional follow-up of suspicious palpable abnormalities. Note on Mimi scores and lifetime risk: 1. A Mimi score greater than 3% is considered moderate risk. If this is the case, consider specialist referral to assess eligibility for a risk reducing agent. 2. If overall lifetime risk for the development of breast cancer is 20% or higher, the patient may qualify for future screening with alternating mammogram and breast MRI. [facility], , 05/08/2024 9:47 AM. Electronically signed and approved by: Mir Jones M.D. Radiologis
== END | disposition home or self-care (01) ==
LOC: RADMAMWWP 13:08
PROVIDERS: ATTEND Internal Medicine Hematology & Oncology
CPT/HCPCS: 77067

== ENCOUNTER → 2024-08-26 | Outpatient (CLI) | payer MEDICARE, BC ==
--- NOTE | 2024-08-26 11:34 | XR ---
EXAMINATION TYPE: XR cervical spine comp DATE OF EXAM: 08/26/2024 11:28 AM INDICATION: Patient age:Female; 83 years old; Reason for study: R52 PAIN; PHH, pain COMPARISON: None TECHNIQUE: The cervical spine was imaged in 4 projections. Frontal, lateral, odontoid and bilateral o blique. FINDINGS: No acute fracture. Mild retrolisthesis of C5 on C6. There are osteophytes noted throughout the cervic al spine on the anterior and lateral aspects of the vertebral bodies. Narrowing of the bilateral neur al foramen from the 5 through C7. Multilevel disc space narrowing with endplate screws as anterior os teophytosis from C5 to C7. Pedicles are intact. Soft tissues are within normal limits. The odontoid appears intact. IMPRESSION: 1. No fracture or dislocation. 2. Mild to moderate degenerative disc disease changes of the cervical spine. 3. Mild retrolisthesis of C5 on C6. [facility], , 08/26/2024 11:31 AM
== END | disposition home or self-care (01) ==
LOC: RADXRMAIN 11:05
PROVIDERS: ATTEND Internal Medicine
DX: M50.30 Other cervical disc degeneration, unspecified cervical region (principal); M43.12 Spondylolisthesis, cervical region
CPT/HCPCS: 72050

== ENCOUNTER → 2024-10-16 | Outpatient (CLI) | payer MEDICARE, BC ==
--- NOTE | 2024-10-16 09:40 | US ---
EXAMINATION TYPE: US kidneys/renal and bladder DATE OF EXAM: 10/16/2024 COMPARISON: 05/17/21 CLINICAL INDICATION: Female, 84 years old with history of N189 CKD; CKD TECHNIQUE: Grayscale imaging of the bilateral kidneys and urinary bladder: FINDINGS: EXAM MEASUREMENTS: Right Kidney: 8.6 x 5.1 x 4.6 cm Left Kidney: 8.3 x 4.5 x 4.4 cm Right Kidney: No hydronephrosis or masses seen Left Kidney: No hydronephrosis or masses seen Bladder: wnl Bilateral Jets seen: No There is no evidence for hydronephrosis at this point in time. No nephrolithiasis is seen. No kiran s are identified. The urinary bladder is anechoic. IMPRESSION: No evidence for obstructive uropathy or renal calculus. [facility], , 10/16/2024 9:38 AM
== END | disposition home or self-care (01) ==
LOC: RADUSWWP 09:07
PROVIDERS: ATTEND Internal Medicine
DX: N18.9 Chronic kidney disease, unspecified (principal)
CPT/HCPCS: 76770

== ENCOUNTER → 2025-01-22 | Outpatient (CLI) | payer MEDICARE, BC ==
[2025-01-23 02:54] LABS: BUN/Creat Ratio 25.26 Ratio (12.00-20.00); Chloride 103 mmol/L (96-109); Glucose 150 mg/dL (70-110); Potassium 4.7 mmol/L (3.5-5.5); Sodium 139 mmol/L (135-145)
[2025-01-23 02:55] LABS: Calcium 9.6 mg/dL (8.7-10.3); Carbon Dioxide 24.3 mmol/L (21.6-31.8)
== END | disposition home or self-care (01) ==
LOC: LABWHC1 15:57
PROVIDERS: ATTEND Internal Medicine
DX: N18.32 Chronic kidney disease, stage 3b (principal)
CPT/HCPCS: 36415; 80048

== ENCOUNTER → 2025-01-30 | Outpatient (CLI) | payer MEDICARE, BC ==
[2025-01-30 16:00] LABS: Anion Gap 10.50 mmol/L (4.00-12.00); BUN/Creat Ratio 27.75 Ratio (12.00-20.00); Blood Urea Nitrogen 44.4 mg/dL (9.0-27.0); Calcium 9.4 mg/dL (8.7-10.3); Carbon Dioxide 22.5 mmol/L (21.6-31.8); Chloride 108 mmol/L (96-109); Glucose 201 mg/dL (70-110); Potassium 5.0 mmol/L (3.5-5.5); Sodium 141 mmol/L (135-145)
== END | disposition home or self-care (01) ==
LOC: LABWHC1 09:14
PROVIDERS: ATTEND Internal Medicine
DX: N18.32 Chronic kidney disease, stage 3b (principal)
CPT/HCPCS: 36415; 80048